=== PATIENT | male | born 1940 | race Caucasian/White ===

== ENCOUNTER → 2017-09-23 | Outpatient (CLI) | payer OTHER, MEDICARE ==
--- NOTE | 2017-09-23 14:18 | DIAGNOSTIC IMAGING REPORT ---
ORBIT RADIOGRAPHS 3 VIEWS HISTORY: pre-MRI screening. COMPARISON: None. FINDINGS: There are no radiopaque foreign bodies identified within the orbits. An opaque catheter projects over the calvarium. IMPRESSION: No radiopaque foreign bodies identified within the orbits. Electronically signed by: Troy Ortiz M.D. 09/23/2017 2:17 PM Dictated Date/Time: 09/23/2017 2:16 PM
--- NOTE | 2017-09-23 15:28 | DIAGNOSTIC IMAGING REPORT ---
LUMBAR SPINE MRI HISTORY: HYDROCEPHALUS,TECHNICAL ASSOCIATE SHUNT,SEVERE LOWER EXT WEAKNESS TECHNIQUE: Multiplanar multisequence MRI of the lumbar spine was performed without the use of contrast. COMPARISON: None. FINDINGS: For the purpose of the report the L5-S1 disc space will be located on axial image 23 of 25. Alignment is intact. No fractures within the lumbar spine. Severe disc space narrowing and fluid at the L2-L3 level. There is also severe disc space narrowing at L3-L4. Moderate to space are at L5-S1. Mild disc space narrowing at L4-L5. The conus terminates at the L1-L2 disc space level. Moderate edema both within and in surrounding the bilateral psoas muscles. Mild subcutaneous edema seen within the lumbar region. Mild endplate edema at the L2-L3 level. No endplate erosions identified. Mild facet degenerative changes seen within the lumbar spine. There is also mild edema within the bilateral erector spinae muscles. L1-L2: Broad-based posterior disc bulge with ligamentum and facet hypertrophy resulting in mild central canal and moderate right neural foraminal narrowing. There is mild left neural foraminal narrowing. L2-L3: Broad-based posterior disc bulge with ligamentum and facet hypertrophy resulting in [id number] central canal and mild bilateral neural foraminal narrowing. L3-L4: Broad-based posterior disc bulge with ligamentum and facet hypertrophy resulting in mild to moderate central canal and moderate right and mild left neural foraminal narrowing. L4-L5: Broad-based posterior disc bulge with ligamentum and facet hypertrophy resulting in moderate central canal and moderate to severe left neural foraminal narrowing. There is also mild to moderate right neural foraminal narrowing. L5-S1: Broad-based posterior disc bulge with a left paracentral focal disc protrusion. This abuts the transiting left S1 nerve root. There is associated mild central canal and moderate bilateral neural foraminal narrowing. IMPRESSION: 1. Multilevel lumbar spondylosis as described above resulting in areas of mild to moderate central canal and neural foraminal narrowing. 2. No fractures of dictation within the lumbar spine. 3. Severe disc space narrowing with a small amount of fluid and endplate edema at the L2-L3 disc space level. However, there is no endplate erosion identified at this time to suggest a discitis/osteomyelitis. Therefore, this favors long-standing degenerative change. 4. Nonspecific edema within the psoas and erector spinae muscles. This could be due to a diffuse edematous state or muscular strain. Electronically signed by: Matt Baez M.D. 09/23/2017 3:27 PM Dictated Date/Time: 09/23/2017 3:13 PM
--- NOTE | 2017-09-23 15:28 | DIAGNOSTIC IMAGING REPORT ---
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 TECHNIQUE: Axial CT of the brain is performed from the vertex to the skull base. IV contrast was not administered for this examination. A dose lowering technique was utilized adhering to the principles of ALARA. CT DOSE: 614.27 mGy.cm FINDINGS: There are small bilateral extra-axial fluid collections, likely representing small chronic subdural hematomas. No acute hemorrhage is visualized. There is no midline shift. There is no CT evidence of acute cortical infarction. There is a right occipital shunt catheter which terminates in the left lateral ventricle. There are patchy white matter hypodensities likely on a small vessel basis. There is an old left frontoparietal infarct. There is an old lacunar infarct in the right cerebellar hemisphere. Old lacunar infarcts are visualized in the region of the right external capsule. There is no evidence of pathologic ventricular dilatation. There is no evidence of acute sinusitis IMPRESSION: 1. Right occipital shunt catheter which terminates in the left lateral ventricle 2. No hydrocephalus 3. Small bilateral extra-axial fluid collections likely representing chronic subdural hematomas 4. 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 Electronically signed by: Troy Ortiz M.D. 09/23/2017 3:26 PM Dictated Date/Time: 09/23/2017 3:23 PM
== END | disposition home or self-care (01) ==
LOC: C.MRI 13:23
PROVIDERS: ATTEND Physical Medicine & Rehabilitation
DX: G91.9 Hydrocephalus, unspecified (principal); Z98.2 Presence of cerebrospinal fluid drainage device; M62.81 Muscle weakness (generalized); M47.816 Spondylosis without myelopathy or radiculopathy, lumbar region; M99.73 Connective tissue and disc stenosis of intervertebral foramina of lumbar region

== ENCOUNTER → 2017-10-02 | Outpatient (CLI) | payer OTHER ==
--- NOTE | 2017-10-02 16:27 | DIAGNOSTIC IMAGING REPORT ---
MRI OF THE CERVICAL SPINE WITHOUT IV CONTRAST CLINICAL HISTORY: Bilateral upper and lower extremity weakness. COMPARISON STUDY: No priors. TECHNIQUE: MRI of the cervical spine is performed utilizing various T1 and T2-weighted sequences in the axial and sagittal planes. IV contrast was not administered for this examination. The examination is modestly degraded by motion artifact. FINDINGS: Cervical spine: Vertebral body height is maintained throughout the cervical spine. There is minimal anterolisthesis at C3-C4 and minimal retrolisthesis at C4-C5. Alignment is otherwise maintained. Marrow signal intensity is heterogeneous. The atlantodental articulation appears preserved. The spinous processes appear intact. Chronic degenerative endplate change is noted at C6-C7 and C7-T1. Small anterior osteophytes are seen in the lower cervical spine. Intervertebral discs: Advanced degenerative disc desiccation is seen throughout the cervical spine. There is moderate loss of height at C4-C5, C5-C6, and C6-C7. Mild loss of height is seen at the remaining cervical levels. Spinal cord: The cervical spinal cord is normal in morphology and signal intensity. C2-C3: There is a small posterior disc osteophyte complex of no consequence. Uncovertebral and facet arthropathy cause moderate left and minimal right neural foraminal stenosis. C3-C4: A posterior disc osteophyte complex effaces the ventral subarachnoid space. Uncovertebral and facet arthropathy cause moderate left greater than right neural foraminal stenosis. C4-C5: A posterior disc osteophyte complex eccentric to the right abuts the ventral cord. Uncovertebral and facet arthropathy cause severe right greater than left neural foraminal stenosis. C5-C6: A posterior disc osteophyte complex effaces the ventral subarachnoid space. Uncovertebral and facet arthropathy causes moderate to severe right greater than left neural foraminal stenosis. C6-C7: A posterior disc osteophyte complex abuts the ventral cord. Uncovertebral and facet arthropathy cause moderate right and mild left neural foraminal stenosis. C7-T1: Unremarkable. Soft tissues: The prevertebral and paraspinous soft tissues are normal as visualized. Brain parenchyma: Partially imaged brain parenchyma at the skull base demonstrates cortical atrophy. Small chronic lacunar infarcts are suggested in the clair and right cerebellar hemisphere. IMPRESSION: 1. The cervical spinal cord is normal in morphology and signal intensity. 2. Multilevel cervical spondylosis as above. See discussion for detailed level by level analysis. 3. Degenerative disc disease with associated endplate change as above. No destructive bony process is identified. Dictated: 10/02/2017 4:08 PM Transcribed: 10/02/2017 4:27 PM [facility] Electronically signed by: Ben Linares M.D. 10/02/2017 4:30 PM Dictated Date/Time: 10/02/2017 4:08 PM
== END | disposition home or self-care (01) ==
LOC: C.MRIBC 15:28
PROVIDERS: ATTEND Physical Medicine & Rehabilitation
DX: M62.81 Muscle weakness (generalized) (principal); M47.812 Spondylosis without myelopathy or radiculopathy, cervical region; M50.30 Other cervical disc degeneration, unspecified cervical region